=== PATIENT | female | born 2000 | race Asian ===

== ENCOUNTER 2020-08-14 13:49 | Emergency (ER) | payer OTHER ==
[~2020-08-14] VITALS: Ht 167.6 cm; Wt 67.1 kg
[2020-08-14 14:41] VITALS: BP 113/66
== END 2020-08-14 15:15 | disposition home or self-care (01) ==
LOC: ER 13:53
DX: U07.1 COVID-19 (principal)
CPT/HCPCS: 99283; C9803; U0003